=== PATIENT | female | born 1995 | race Caucasian/White ===

== ENCOUNTER → 2018-05-10 16:29 | Outpatient (REF) | payer MEDICAID, SELFPAY ==
--- NOTE | 2018-05-10 15:30 | PAPFT_PTH ---
PATIENT: Buffy Liao LOC: [facility] U#:[id number] AGE/SX: 30/F ROOM: RE05/10/[address]: Naa Chandler NP : 1995 BED: DIS: SPEC #: [id number] RECD: 05/10/18 17:53 STATUS: GENARO MONTES #: [id number] DIANE: 05/10/18 15:[address]: Naa Chandler NP DEPT: [facility] Cytology RECD BY: Maya Gracia ENTERED: 05/10/18 17:53 SP TYPE: PAPFT OTHR DR: Wes Swann MD Tissues: 1 - CX/ENDOCX FOR PAP SMEARS Procedures: PAP THIN PREP/UVM Screening Comments: [id number] (CHLAMYDIA/GC)
[2018-05-11 15:29] LABS: Chlamydia Result Negative; GC Result Negative; Specimen Description SEE COMMENTS
== END ==
LOC: LBN 16:29
PROVIDERS: PCP Pediatrics; Visit Provider Nurse Practitioner Women's Health
DX: Z11.3 Encounter for screening for infections with a predominantly sexual mode of transmission (principal); Z12.4 Encounter for screening for malignant neoplasm of cervix
CPT/HCPCS: 87491; 87591; 88142

== ENCOUNTER 2019-02-22 10:05 | Emergency (ER) | payer MEDICAID, SELFPAY ==
[2019-02-22 10:09] VITALS: BP 139/85; PULSE 88; RESP 16; TEMP 37.1; O2SAT 100
--- NOTE | 2019-02-22 10:15 | ED.GENADUL_ITS ---
Discharge Plan Disposition Patient Disposition: HOME Condition: Stable Discharge Details Chief Complaint: AnimalBite Clinical Impression: Dog bite Primary Care Provider: None,None ED Provider: Meggan Mcdaniel Home Meds and New Rx's Prescriptions: New amoxicillin-pot clavulanate [Augmentin] 875-125 mg tablet 1 tab PO BID 10 Days Qty: 20 RF: 0 Continued Fiorella 1 EACH intrauterine device 1 ea Intrauterine ONCE Qty: 1 RF: 0 Discharge Instructions Instructions: Animal Bite (ED) Additional Instructions: Keep the wounds clean, dry and covered. If the Steri-Strips fall off, replace them loosely. Once the Steri-Strips dry up and fall off, wash your hand with soap and water. Apply topical antibiotic ointment to the wounds 1-2 times daily. Take the antibiotics until finished. You will receive a call from care management regarding a follow-up appointment with the primary care doctor in 1 week for wound evaluation. Return immediately to the emergency department if you develop any worsening or new concerning symptoms such as red streaking, increased pain, redness or swelling or fever or chills. Discharge Data Discharge Date/Time-TO BE ENTERED AT DEPARTURE: 02/22/19 11:36 Discharge Physician: Meggan Mcdaniel Medical Decision Making 23-year-old female presents with 2 lacerations to left hand sustained from a dog with a history of dog biting and anxiety whom she is dog sitting for the next few days. Dog's immunizations up-to-date. Patient's tetanus not up-to-date. Patient has two 1 cm irregular shaped lacerations to the dermis on her left hand. One wound within left second and third webspace, one wound on dorsal hand. No active bleeding, no acute signs of infection, or foreign bodies noted. Neurovascularly intact. As wounds are near closely approximated, will irrigate, cover with antibiotic ointment and closed loosely with Steri-Strips. Will send for left hand x-ray to rule out fracture versus foreign body. Dose of ibuprofen ordered. Patient states she is currently on her menses and declined test. Boostrix ordered. 1110 --x-ray negative for fracture or foreign body. Wounds were irrigated and closed loosely with Steri-Strips. Patient states she will go directly to the pharmacy to fill her prescription for Augmentin. She is instructed on the importance of good wound care. Patient placed on care management list to arrange an appointment with primary care doctor within 1 week for wound recheck. She is instructed to return here immediately if she develops any signs of infec tion, fever or chills. She is instructed to monitor the dog over the next week for any change in medical status. Animal bite was reported to the Department of Health. Medical Records Medical records reviewed: Yes I reviewed the patient's medical records. Imaging Data Radiologic Study: Radiologist's impression: LEFT HAND: Three views. No acute fracture or dislocation is seen. No radiopaque foreign bodies are seen in the soft tissues. Note is made of some air in the subcutaneous tissues between the index and middle fingers. IMPRESSION: No acute fracture, dislocation, or radiopaque foreign bodies in the soft tissues. HPI General Mode of arrival: ambulatory . Date/Time Provider Initiated Documentation: 02/22/19 10:09 . Limitations to Documentation: no limitations . Information obtained by: patient . HPI Narrative: Patient is a 23-year-old female who presents to the ED with a complaint of dog bites to left hand sustained prior to arrival. 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 She states the dog is a history of biting. She sustained to wounds to her left hand. She states her tetanus is not up to date. She states the dog's immunizations are up-to-date. States the dog otherwise has been acting normally and at his baseline. Related Data Home Medications Medication Instructions Recorded Confirmed Fiorella 1 ea INTRAUTERINE ONCE #1 implant 05/11/18 02/22/19 amoxicillin-pot clavulanate 1 tab PO BID 10 Days #20 tab 02/22/19 [Augmentin] Previous Rx's Medication Instructions Recorded Fiorella 1 ea INTRAUTERINE ONCE #1 implant 05/11/18 amoxicillin-pot clavulanate 1 tab PO BID 10 Days #20 tab 02/22/19 [Augmentin] Allergies Allergy/AdvReac Type Severity Reaction Status Date / Time No Known Drug Allergies Allergy Unverified 02/22/19 10:14 General Stated Complaint: AnimalBite ZAKIYA: 4 Review of Systems Review of Systems All systems reviewed & are unremarkable except as noted in HPI and below Constitutional Reports as per HPI, Denies chills and Denies fever(s) Eyes Denies blurry vision ENT Denies dizziness, Denies sore throat and Denies throat swelling Cardiovascular Denies chest pain and Denies dyspnea Respiratory Denies cough and Denies dyspnea Gastrointestinal Denies abdominal pain, Denies diarrhea and Denies vomiting Genitourinary Denies hematuria and Denies dysuria Musculoskeletal Denies back pain and Denies numbness Integumentary/Breasts Denies lesions and Denies rash Neurologic Denies dizziness, Denies focal weakness and Denies numbness Allergic/Immunologic Denies throat swelling [facility] Medical History IUD surveillance (Acute 05/10/18) Attention deficit hyperactivity disorder (Acute 07/24/13) Attention deficit hyperactivity disorder Surgical History No significant past surgical history (Acute) Family History Mother No problems noted. Father Lymphoma Social History Smoking/Tobacco Use Status: Former Tobacco Use Alcohol Intake: current Alcohol Intake frequency: a few times a week Alcohol type: beer Drug use: Occasionally Substance use type: marijuana Do you feel safe at home: Yes Do you feel safe in your relationship?: Yes Exam Const General: cooperative, healthy appearing and no acute distress HENMT Head: normal to inspection Mouth: oral mucosae normal Eyes General: appearance normal, both eyes and all related structures Neck Neck: normal visual inspection Resp Effort & Inspection: normal respiratory effort and able to speak in complete sentences Cardio Rate: regular rate Skin General skin exam: no rashes or lesions noted Neuro General: alert, awake, oriented x3 and no focal motor deficits Motor: muscle tone normal throughout and strength 5/5 throughout Sensory Exam: no sensory deficits noted Other: Normal flexion, abduction, abduction, extension of all fingers of left hand. Extrem Hand/finger images: 1. 1cm triangle shaped laceration through dermis. No acute bleeding. No obvious foreign bodies. No erythema, edema, ecchymoses 2. 1cm triangle shaped laceration through dermis. No acute bleeding. No obvious foreign bodies. No erythema, edema, ecchymoses. Psych Appearance: grossly normal Affect: normal affect Course Vital Signs Temperature 98.8 F 02/22/19 10:09 Pulse 88 02/22/19 10:09 Respiratory Rate 16 02/22/19 10:09 Blood Pressure 139/85 02/22/19 10:09 Pulse Oximetry 100 02/22/19 10:09 Temperature 98.8 F 02/22/19 10:09 Temperature Source Skin 02/22/19 10:09 Pulse 88 02/22/19 10:09 Respiratory Rate 16 02/22/19 10:09 Blood Pressure 139/85 02/22/19 10:09 Blood Pressure Position Sitting 02/22/19 10:09 Pulse Oximetry 100 02/22/19 10:09 Oxygen Delivery Method Room Air 02/22/19 10:09 Oxygen Flow Rate 0 02/22/19 10:09
--- NOTE | 2019-02-22 10:44 | DI.RAD_ITS ---
SYMPTOM/DIAGNOSIS: S/P DOG BITE TO LT HAND BETWEEN lT 2ND/3RD FINGERS LEFT HAND: Three views. No acute fracture or dislocation is seen. No radiopaque foreign bodies are seen in the soft tissues. Note is made of some air in the subcutaneous tissues between the index and middle fingers. IMPRESSION: No acute fracture, dislocation, or radiopaque foreign bodies in the soft tissues.
[2019-02-22] MEDS: Ibuprofen 600 MG TAB PO (10:48)
--- NOTE | 2019-02-24 07:21 | NUR.NOTE ---
Referal request sent to [facility] to establish and f/u ED visit.Nursing Note:
== END 2019-02-22 11:36 | disposition home or self-care (01) ==
PROVIDERS: Emergency Provider Physician Assistant
DX: S61.452A Open bite of left hand, initial encounter (principal); W54.0XXA Bitten by dog, initial encounter
CPT/HCPCS: 90471; 99283; 73130

== ENCOUNTER 2019-03-06 13:42 | Outpatient (REF) | payer MEDICAID, SELFPAY ==
[2019-03-07 14:22] LABS: Chlamydia Result Negative; GC Result Negative; Specimen Description CERVIX
== END 2019-03-06 14:02 ==
LOC: LBN 13:42
PROVIDERS: Visit Provider Nurse Practitioner Women's Health
DX: Z11.3 Encounter for screening for infections with a predominantly sexual mode of transmission (principal)
CPT/HCPCS: 87491; 87591

== ENCOUNTER 2019-07-11 09:47 | Outpatient (REF) | payer MEDICAID, SELFPAY ==
--- NOTE | 2019-07-11 09:30 | PAPFT_PTH ---
PATIENT: Buffy Liao LOC: [facility] U#:[id number] AGE/SX: 23/F ROOM: RE07/11/[address]: Khadar Romero : 1995 BED: DIS: 07/11/2019 SPEC #: [id number] RECD: 07/11/19 18:28 STATUS: GENARO REQ #: [id number] DIANE: 07/11/19 09:[address]: Khadar Romero DEPT: [facility] Cytology RECD BY: Maya Gracia Tissues: 1 - CX/ENDOCX FOR PAP SMEARS Procedures: PAP THIN PREP/UVM Screening HPV DNA PROBE Comments: [id number] (CHLAMYDIA/GC)
[2019-07-12 12:15] LABS: Hepatitis C Ab w Rflx HCV PCR Negative (NEGAT)
[2019-07-12 12:25] LABS: Hepatitis B Surface Ag Negative (NEGAT)
[2019-07-12 12:41] LABS: Chlamydia Result Negative; GC Result Negative; Specimen Description SEE COMMENTS
[2019-07-12 12:41] LABS: Chlamydia Result Negative; GC Result Negative; Specimen Description URINE
[2019-07-12 13:02] LABS: Hepatitis B Surface Ab Negative
[2019-07-12 13:05] LABS: HIV-1/2 Ag & Ab Screen Negative (NEGAT)
[2019-07-12 13:51] LABS: Syphilis Serology (RPR) Negative (Negative)
== END 2019-07-11 10:07 ==
LOC: NCHCN 09:47
PROVIDERS: PCP Nurse Practitioner Family; Visit Provider Nurse Practitioner Family
DX: Z11.59 Encounter for screening for other viral diseases (principal); Z11.3 Encounter for screening for infections with a predominantly sexual mode of transmission; Z11.4 Encounter for screening for human immunodeficiency virus [HIV]; Z12.4 Encounter for screening for malignant neoplasm of cervix; Z11.51 Encounter for screening for human papillomavirus (HPV); Z00.00 Encounter for general adult medical examination without abnormal findings
CPT/HCPCS: 86706; 86803; 87340; 87389; 87491; 87591; 88142; 86592; 87624

== ENCOUNTER 2019-07-25 13:30 | Outpatient (REF) | payer MEDICAID, SELFPAY ==
[2019-07-26 13:30] LABS: Chlamydia Result Negative (Negative); GC Result Negative (Negative); Specimen Description ENDOCERVICAL
== END 2019-07-25 13:50 ==
LOC: LBN 13:30
PROVIDERS: PCP Nurse Practitioner Family; Visit Provider Nurse Practitioner Family
DX: R30.0 Dysuria (principal); Z11.3 Encounter for screening for infections with a predominantly sexual mode of transmission
CPT/HCPCS: 87077; 87491; 87591; 87086; 87186

== ENCOUNTER 2020-04-21 14:51 | Outpatient (REF) | payer MEDICAID, SELFPAY ==
[2020-04-22 23:44] LABS: COVID-19 RT-PCR Result NEGATIVE (Negative)
== END 2020-04-21 15:11 ==
LOC: NCHCN 14:51
PROVIDERS: PCP Nurse Practitioner Family; Visit Provider Nurse Practitioner Family
DX: J31.0 Chronic rhinitis (principal); L29.8 Other pruritus; J02.9 Acute pharyngitis, unspecified
CPT/HCPCS: U0003

== ENCOUNTER 2021-02-12 18:33 | Outpatient (REF) | payer MEDICAID, SELFPAY ==
[2021-02-15 11:57] LABS: Hepatitis C Ab w Rflx HCV PCR Negative (Negative)
[2021-02-15 12:02] LABS: HIV-1/2 Ag & Ab Screen Negative (Negative)
[2021-02-15 15:20] LABS: Chlamydia Result Negative (Negative); GC Result Negative (Negative)
== END 2021-02-12 18:34 | disposition home or self-care (01) ==
LOC: NCHCN 18:33
PROVIDERS: PCP Nurse Practitioner Family; Visit Provider Nurse Practitioner Family
DX: Z11.3 Encounter for screening for infections with a predominantly sexual mode of transmission (principal); Z11.4 Encounter for screening for human immunodeficiency virus [HIV]; Z11.59 Encounter for screening for other viral diseases
CPT/HCPCS: 86803; 87389; 87491; 87591; 87480; 87510; 87660

== ENCOUNTER 2021-09-16 16:01 | Outpatient (REF) | payer MEDICAID, SELFPAY ==
[2021-09-20 15:27] LABS: Chlamydia Result Negative (Negative); GC Result Negative (Negative)
== END 2021-09-16 16:02 | disposition home or self-care (01) ==
LOC: LBN 16:01
PROVIDERS: PCP Nurse Practitioner Family; Visit Provider Advanced Practice Midwife
DX: N89.8 Other specified noninflammatory disorders of vagina; Z11.3 Encounter for screening for infections with a predominantly sexual mode of transmission
CPT/HCPCS: 87491; 87591; 87086; 87480; 87510; 87660

== ENCOUNTER 2022-05-12 17:47 | Outpatient (REF) | payer MEDICAID, SELFPAY ==
[2022-05-14 13:39] LABS: Chlamydia Result Negative (Negative); GC Result Negative (Negative)
== END 2022-05-12 17:48 | disposition home or self-care (01) ==
LOC: NCHCN 17:47
PROVIDERS: PCP Nurse Practitioner Family; Visit Provider Nurse Practitioner Family
DX: Z20.2 Contact with and (suspected) exposure to infections with a predominantly sexual mode of transmission (principal); F90.9 Attention-deficit hyperactivity disorder, unspecified type
CPT/HCPCS: 87491; 87591; 87480; 87510; 87660

== ENCOUNTER 2023-02-09 12:47 | Outpatient (REF) | payer MEDICAID, SELFPAY | END 2023-02-09 12:48 | disposition home or self-care (01) | LOC: LBN 12:47 | PROVIDERS: Visit Provider Specialist/Technologist Athletic Trainer | DX: R30.0 Dysuria (principal); N89.8 Other specified noninflammatory disorders of vagina | CPT/HCPCS: 87086; 87480; 87510; 87660 ==

== ENCOUNTER 2024-07-25 13:36 | Outpatient (REF) | payer BC, SELFPAY ==
[2024-07-26 13:08] LABS: Chlamydia Result Negative (Negative); GC Result Negative (Negative)
== END 2024-07-25 13:37 | disposition home or self-care (01) ==
LOC: LBN 13:36
PROVIDERS: Visit Provider Obstetrics & Gynecology
DX: N89.8 Other specified noninflammatory disorders of vagina (principal); Z30.432 Encounter for removal of intrauterine contraceptive device; Z30.9 Encounter for contraceptive management, unspecified; Z11.3 Encounter for screening for infections with a predominantly sexual mode of transmission
CPT/HCPCS: 87491; 87591; 87480; 87510; 87660